=== PATIENT | female | born 2000 | race Two or more races ===

== ENCOUNTER 2024-02-29 15:33 | Emergency (ER) | payer OTHER, MEDICAID ==
[~2024-02-29] VITALS: Ht 149.9 cm; Wt 73.6 kg
[2024-02-29 15:45] VITALS: BP 115/82; PULSE 83; RESP 16; O2SAT 96
== END 2024-02-29 20:48 | disposition left against medical advice (07) ==
LOC: ER 15:33
DX: M54.9 Dorsalgia, unspecified (principal); Z53.21 Procedure and treatment not carried out due to patient leaving prior to being seen by health care provider; V43.62XA Car passenger injured in collision with other type car in traffic accident, initial encounter; Y93.89 Activity, other specified; Y92.410 Unspecified street and highway as the place of occurrence of the external cause; Y99.8 Other external cause status